=== PATIENT | female | born 1995 | race Caucasian/White ===

== ENCOUNTER 2016-09-22 21:24 | Emergency (ER) | payer OTHER ==
[~2016-09-22] VITALS: Ht 167.6 cm; Wt 72.0 kg
[~2016-09-22 21:24] MED LIST: CYCL10TA2 PO; HYDR-971 PO; PRED20TA PO
[2016-09-22 21:30] VITALS: BP 123/76
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
[2016-09-22 22:26] LABS: BILIRUBIN,URINE NEG (NEG); CLARITY,URINE HAZY; COLOR,URINE AMBER; GLUCOSE,URINE 100 mg/dL (NEG); NITRITE,URINE POS (NEG); UROBILINOGEN,URINE 1 mg/dL (0.2 mg/dL)
[2016-09-22 22:28] LABS: BACTERIA,URINE 0 /HPF (0-FEW); WBC,URINE 20-40 /HPF (0-4)
[2016-09-22] MEDS ORDERED: PHENAZOPYRIDINE 200 MG TABLET. PO ONE (23:30)
[2016-09-22] MEDS ORDERED: FLAVOXATE 100 MG TABLET PO ONE (23:30)
== END 2016-09-22 23:03 | disposition home or self-care (01) ==
LOC: ER 21:24
DX: N39.0 Urinary tract infection, site not specified (principal)
CPT/HCPCS: 81001; 99283

== ENCOUNTER 2016-12-13 15:01 | Emergency (ER) | payer OTHER ==
[~2016-12-13] VITALS: Ht 167.6 cm; Wt 70.4 kg
[~2016-12-13 15:01] MED LIST changes: +CYCL-331 PO; -CYCL10TA2 PO
[2016-12-13 15:15] VITALS: BP 117/65
[2016-12-13 16:03] LABS: COLOR,URINE YELLOW
[2016-12-13 16:04] LABS: BACTERIA,URINE MANY /HPF (0-FEW); BILIRUBIN,URINE NEG (NEG); CLARITY,URINE CLOUDY; GLUCOSE,URINE NEG (NEG); NITRITE,URINE NEG (NEG); RBC,URINE >40 /HPF (0-2); SQUAMOUS EPITHELIAL CELL,UR OCC /LPF; UROBILINOGEN,URINE 0.2 mg/dL (0.2 mg/dL); WBC,URINE TNTC /HPF (0-4)
[2016-12-13] MEDS ORDERED: CIPR250T30 PO (16:23)
--- NOTE | 2016-12-13 16:23 | PHYS DOC ---
Past History Past Medical History: No Pertinent History Past Surgical History: No Surgical History Smoking: Non-smoker Alcohol Use: Occasionally Drug Use: None Adult General Chief Complaint Chief Complaint: PAIN ON URINATION HPI HPI Patient is a 21 year old female who presents with dysuria. Patient reports 2 day history of painful urination, frequency, urgency, hesitancy. Denies fevers or chills, nausea or vomiting, abdominal pain, flank pain. Denies vaginal bleeding or discharge. History of previous UTI. No recent antibiotics. Review of Systems Review of Systems Constitutional: Denies fever or chills HENT: Denies nasal congestion or sore throat Respiratory: Denies cough or shortness of breath Cardiovascular: Denies chest pain GI: Denies abdominal pain, nausea, vomiting, or diarrhea : Reports dysuria, denies hematuria Musculoskeletal: Denies back pain Integument: Denies rash Neurologic: Denies headache Allergies Allergies Allergies Coded Allergies Type Severity Reaction Last Updated Verified No Known Drug Allergies 09/24/13 No Physical Exam Physical Exam Constitutional: Well developed, well nourished, no acute distress, non-toxic appearance. HENT: Normocephalic, atraumatic, bilateral external ears normal, oropharynx moist, nose normal. Eyes: conjunctiva normal, no discharge. Cardiovascular: RRR, no murmurs, no edema. Lungs & Thorax: LCTAB, no wheezing, no respiratory distress. Abdomen: soft, nontender, nondistended. Skin: Warm, dry, no erythema, no rash. Back: No CVA tenderness. Extremities: No deformity Neurologic: Alert and oriented X 3 Current Patient Data Vital Signs Vital Signs Date Time Temp Pulse Resp B/P (MAP) Pulse Ox O2 Delivery O2 Flow Rate FiO2 12/13/16 15:15 98.2 81 20 99 Room Air Lab Results Laboratory Tests Test 12/13/16 15:30 12/13/16 15:38 Urine Collection Type Unknown Urine Color Yellow Urine Clarity Cloudy Urine pH 5.5 Urine Specific [place] 1.015 Urine Protein 100 mg/dl (NEG-TRACE) Urine Glucose (UA) Neg mg/dL (NEG) Urine Ketones (Stick) Neg mg/dL (NEG) Urine Blood Large (NEG) Urine Nitrite Neg (NEG) Urine Bilirubin Neg (NEG) Urine Urobilinogen Dipstick 0.2 mg/dL (0.2 mg/dL) Urine Leukocyte Esterase Small (NEG) Urine RBC >40 /HPF (0-2) Urine WBC Tntc /HPF (0-4) Urine Squamous Epithelial Cells Occ /LPF Urine Transitional Epithelial Cells Occ /LPF Urine Bacteria Many /HPF (0-FEW) POC Urine HCG, Qualitative hcg negative (Negative) EKG EKG [] Radiology/Procedures Radiology/Procedures [] Course & Med Decision Making Course & Med Decision Making Pertinent Labs and Imaging studies reviewed. (See chart for details) Patient presents with symptoms consistent with UTI. UA confirms diagnosis. Well- appearing, afebrile, tolerating by mouth. Gave her Cipro here and provided prescription. Recommend rest, by mouth hydration, Tylenol or ibuprofen for pain. Follow-up with primary care physician if not improving in 2-3 days. Return to the emergency department for high fever, severe pain, uncontrolled vomiting, any otherwise worsening condition. Discharged home in stable condition. [] Dragon Disclaimer Dragon Disclaimer This chart was dictated in whole or in part using Voice Recognition software in a busy, high-work load, and often noisy Emergency Department environment. It may contain unintended and wholly unrecognized errors or omissions. Departure Departure: Impression: Primary Impression: UTI (urinary tract infection) Disposition: 01 HOME, SELF-CARE Condition: STABLE Referrals: SABRINA FERNANDES (PCP) Patient Instructions: Urinary Tract Infection, [id number] Additional Instructions: You were seen in the emergency department today for urinary tract infection. Please take the prescribed antibiotic starting with first dose tomorrow. Take Tylenol or ibuprofen for pain or fever. Drink fluids to stay hydrated. Follow- up with primary care physician if not improving in 2-3 days. Return to the emergency department for high fever, severe abdominal pain or flank pain, uncontrolled vomiting, any otherwise worsening condition. Scripts Ciprofloxacin Hcl (CIPRO) 250 Mg Tablet 1 TAB PO BID, #5 TAB start taking on AM of 12/14, first dose given in ED PM of 12/13 Prov: MINOR CARRASQUILLO MD 12/13/16 MINOR CARRASQUILLO MD Dec 13, 2016 16:23
[2016-12-13] MEDS ORDERED: CIPROFLOXACIN HCL 500 MG TABLET PO ONE (16:45)
== END 2016-12-13 16:59 | disposition home or self-care (01) ==
LOC: ER 15:01
DX: N39.0 Urinary tract infection, site not specified (principal)
CPT/HCPCS: 81001; 81025; 87086; 99284